=== PATIENT | female | born 1950 | race Caucasian/White ===

== ENCOUNTER → 2018-01-27 | Outpatient (CLI) | payer MEDICARE ==
[~2018-01-27] MED LIST: BUPIVACAINE MPF 0.25% 30 ML VIAL.; methylPREDNISolone ACETATE 40 MG/ML VIAL.
== END ==
LOC: PNCL 10:08
DX: G89.28 Other chronic postprocedural pain (principal); D36.17 Benign neoplasm of peripheral nerves and autonomic nervous system of trunk, unspecified; E11.9 Type 2 diabetes mellitus without complications; M19.90 Unspecified osteoarthritis, unspecified site; I48.91 Unspecified atrial fibrillation; K21.9 Gastro-esophageal reflux disease without esophagitis; I10 Essential (primary) hypertension; Z90.710 Acquired absence of both cervix and uterus; Z90.49 Acquired absence of other specified parts of digestive tract; Z88.1 Allergy status to other antibiotic agents; Z88.6 Allergy status to analgesic agent; Z82.49 Family history of ischemic heart disease and other diseases of the circulatory system; Z83.3 Family history of diabetes mellitus; Z85.9 Personal history of malignant neoplasm, unspecified; Z79.01 Long term (current) use of anticoagulants; Z88.8 Allergy status to other drugs, medicaments and biological substances; Z79.899 Other long term (current) drug therapy; Z80.9 Family history of malignant neoplasm, unspecified
CPT/HCPCS: 64450; J1030; J3490

== ENCOUNTER → 2018-02-11 | Outpatient (CLI) | payer MEDICARE ==
[~2018-02-11] MED LIST changes: -BUPIVACAINE MPF 0.25% 30 ML VIAL.; +BUPIVACAINE MPF 0.5% 30 ML VIAL.; -methylPREDNISolone ACETATE 40 MG/ML VIAL.
== END | disposition home or self-care (01) ==
LOC: PNCL 09:49
DX: G89.28 Other chronic postprocedural pain (principal); Z98.890 Other specified postprocedural states
CPT/HCPCS: 64450; J3490

== ENCOUNTER → 2018-10-27 | Day surgery (SDC) | payer MEDICARE ==
[~2018-10-27] MED LIST changes: +ALPR0.5T6 PO; +AMLO5TAB10 PO; +APIX5TAB PO; +ASCO10002 PO; -BUPIVACAINE MPF 0.5% 30 ML VIAL.; +ERGO500027 PO; +GLYB2.5T2 PO; +IV RINGERS,LACTATED 1000ML 1,000 ML IV SCH; +LIDOCAINE 1% PF 2 ML VIAL. ID PRN; +METF500T16 PO; +MULT1TAB52 PO; +OMEG-117 PO; +PANT20TA2 PO; +PROCHLORPERAZINE 10 MG/2 ML VIAL. IV PRN; +PROPOFOL 40 ML IV ONE; +SITA100T PO; +SOTA80TA48 PO; +fentaNYL PF VIAL 100 MCG/2 ML VIAL IV PRN
[2018-10-27 09:00] VITALS: BP 137/84
--- NOTE | 2018-10-27 10:31 | CONS ---
DATE OF CONSULTATION: 10/27/2018 REASON FOR CONSULTATION: Diarrhea and rectal bleeding. HISTORY OF PRESENT ILLNESS: A 67-year-old female whose past medical history is significant for diabetes, COPD, hypertension and hyperlipidemia, seen with chronic diarrhea that has been present for several months, she says up to 6 stools per day. It has been worse since her cholecystectomy. Weight has been increasing. Colonoscopy several years ago was unrevealing before the diarrhea started. No inflammatory bowel disease or celiac disease is noted with the family and no extraintestinal manifestations at this time. With continued issues, she requests additional evaluation. PAST MEDICAL HISTORY: Diabetes, COPD, diverticulitis, GERD and hypertension. ALLERGIES: ALLERGY TO CECLOR, LATEX AND MORPHINE. MEDICATIONS: Include alprazolam, amlodipine, Eliquis, ascorbic acid, vitamin D, metformin, multivitamins, [place]-3, pantoprazole, Januvia and sotalol. FAMILY AND SOCIAL HISTORY: She is a nonsmoker, nondrinker. PAST SURGICAL HISTORY: Back surgery, , cholecystectomy and hysterectomy. REVIEW OF SYSTEMS: Per records. PHYSICAL EXAMINATION: GENERAL: Reveals a well-nourished, well-developed female. VITAL SIGNS: Temperature is 98, pulse 81 and respirations 20. HEENT EXAMINATION: Normocephalic and atraumatic head. Pupils and extraocular muscles are not tested. Sclerae are anicteric. NECK: Supple. LUNGS: Clear. CARDIOVASCULAR EXAMINATION: Reveals S1 and S2, without S3, S4 or appreciable murmur. ABDOMEN: Examination reveals a soft abdomen. Normoactive bowel sounds. No appreciable hepatosplenomegaly. EXTREMITIES: Examination reveals no cyanosis, clubbing or edema. IMPRESSION AND PLAN: Diarrhea, status post cholecystectomy with metformin use, etiology is to be determined. Differential includes celiac, irritable bowel syndrome, inflammatory bowel disease, colon cancer or colon polyps, collagenous colitis and/or drug side effect, i.e., metformin. Therefore, I recommended upper endoscopy and colonoscopy with possible biopsies. Risks and benefits were discussed with the patient, including risk of hemorrhage or perforation. She is willing to proceed at this time. I would like to thank Denisse Paris for allowing us to consult and participate in the patient's care. URSULA SHARP MD DR: MARCELO/ling JOB#: [id number] / [id number]
--- NOTE | 2018-10-28 13:08 | PATHOLOGY ---
[facility] Accession Number: [id number] . 01 Material submitted: . PART A: DUODENAL BIOPSY PART B: RANDOM COLON BIOPSY . 01 Clinical history: . Pre-OP DX: Diarrhea, rectal bleed Post-OP DX: Rule out sprue, rule out microscopic colitis . 02 Diagnosis: A. Small bowel, duodenum, biopsy: - No pathologic diagnosis. - Normal villous architecture. . B. Colon, random biopsies: - Multiple fragments of colonic mucosa with no significant histopathologic diagnosis. (SKM:[facility] 10/28/2018) QTP/10/28/2018 . 02 Electronically signed: . Gabriel Yoder MD, Pathologist NPI- [id number] . 01 Gross description: . A. Received in formalin labeled "[place], Vivien, duodenal BX," are multiple segments of wallace soft tissue measuring 1.4 x 0.8 x 0.2 cm in aggregate dimensions. The specimen is filtered and entirely submitted in cassette A1. . B. Received in formalin labeled "[place], Vivien, random colon BX," are multiple segments of wallace soft tissue measuring 1.8 x 0.6 x 0.1 cm in aggregate dimensions. The specimen is filtered and entirely submitted in cassette B1. (TSD; 10/27/2018) TOB/TOB . 02 Pathologist provided ICD-10: R19.7, K62.5 . 02 CPT . 504599, 005308 Specimen Comment: A courtesy copy of this report has been sent to Specimen Comment: [phone], . Specimen Comment: Report sent to / DR MURILLO Specimen Comment: A duplicate report has been generated due to demographic updates. Performed at: 01 [facility] [address], [place] [id number] MD Mario Perez MD Phone: [phone] Performed at: 02 [facility] [address] [place] [id number] MD Rm Jimenes MD Phone: [phone]
== END | disposition home or self-care (01) ==
LOC: SURG 06:33
PROVIDERS: ATTEND Internal Medicine Gastroenterology
DX: K57.30 Diverticulosis of large intestine without perforation or abscess without bleeding (principal); K64.0 First degree hemorrhoids; K31.89 Other diseases of stomach and duodenum; K52.9 Noninfective gastroenteritis and colitis, unspecified; Z91.040 Latex allergy status; Z88.5 Allergy status to narcotic agent; Z91.048 Other nonmedicinal substance allergy status; I10 Essential (primary) hypertension; E11.9 Type 2 diabetes mellitus without complications; J44.9 Chronic obstructive pulmonary disease, unspecified; E78.5 Hyperlipidemia, unspecified; Z90.49 Acquired absence of other specified parts of digestive tract; K21.9 Gastro-esophageal reflux disease without esophagitis; Z79.899 Other long term (current) drug therapy; Z79.84 Long term (current) use of oral hypoglycemic drugs; Z90.710 Acquired absence of both cervix and uterus; Z98.890 Other specified postprocedural states
CPT/HCPCS: 43239; 45380; 82962; 88305; J2704

== ENCOUNTER → 2018-12-20 | Outpatient (CLI) | payer MEDICARE ==
[2018-10-27 09:00] VITALS: BP 137/84
[~2018-12-20] MED LIST changes: -IV RINGERS,LACTATED 1000ML 1,000 ML IV SCH; -LIDOCAINE 1% PF 2 ML VIAL. ID PRN; -PROCHLORPERAZINE 10 MG/2 ML VIAL. IV PRN; -PROPOFOL 40 ML IV ONE; -fentaNYL PF VIAL 100 MCG/2 ML VIAL IV PRN
--- NOTE | 2018-12-20 15:18 | KCIC ---
MRI left knee without contrast dated 12/20/2018. No comparison available. CLINICAL INDICATION: Pain after twisting injury. TECHNIQUE: Routine multiplanar multisequence MR imaging of left knee performed. No contrast administered. FINDINGS: Bone marrow signal is homogeneous. No marrow edema. Mild tricompartmental hypertrophic change. Mild thinning and surface irregularity of the articular cartilage throughout. Suspected full-thickness cartilage loss of the medial patellar facet and medial femoral trochlea. Small joint effusion. Trace amount of fluid at the semimembranosus-medial head gastrocnemius bursa. Small loose body at the posterior joint space measures about 3 mm in size. Anterior cruciate and posterior cruciate ligaments intact. Medial and lateral collateral complexes intact. Iliotibial band, popliteus tendon and pes anserine complex within normal limits. Quadriceps and patellar tendon are intact. No abnormality of the medial or lateral retinaculum. Both menisci are normal in morphology and signal. No articular surface tear or para meniscal cyst. There is mild generalized fatty atrophy of the distal thigh and calf musculature. IMPRESSION: 1. No evidence of internal derangement. 2. 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 There is full-thickness cartilage loss at the anterior compartment. 3. Small joint effusion with small loose body at the posterior joint space. 4. Mild generalized muscle atrophy. Electronically signed by: Gualberto Strange MD (12/20/2018 3:15 PM) [facility]
== END | disposition home or self-care (01) ==
LOC: KCIC MRI 14:12
PROVIDERS: ATTEND Family Medicine
DX: M17.12 Unilateral primary osteoarthritis, left knee (principal); M25.462 Effusion, left knee; M23.42 Loose body in knee, left knee; M62.562 Muscle wasting and atrophy, not elsewhere classified, left lower leg; M89.38 Hypertrophy of bone, other site
CPT/HCPCS: 73721

== ENCOUNTER 2019-07-24 02:05 | Inpatient (IN) | payer MEDICARE ==
[~2019-07-24] VITALS: Ht 165.1 cm; Wt 93.7 kg
[2019-07-24] MEDS ORDERED: ONDANSETRON PF 4 MG/2 ML VIAL. IV PRN (02:45)
[2019-07-24] MEDS ORDERED: ACETAMINOPHEN 325 MG TABLET. PO PRN (02:45)
[2019-07-24] MEDS: IV NORMAL SALINE 1000ML BAG 1,000 ML IV SCH ×3 (02:45→20:26)
[2019-07-24] MEDS ORDERED: HYDR-2145 PO (02:55)
[2019-07-24] MEDS ORDERED: EMPA10TA PO (02:55)
[2019-07-24] MEDS ORDERED: GLIP10TA13 PO (02:55)
[2019-07-24] MEDS ORDERED: CRESTOR40 MG PO (02:57)
[2019-07-24 03:00] VITALS: BP 133/67
[2019-07-24] MEDS ORDERED: SPIR25TA5 PO (03:00)
[2019-07-24] MEDS ORDERED: ACET500T33 PO (03:00)
[2019-07-24] MEDS ORDERED: ACETAMINOPHEN 500 MG TABLET PO PRN (03:00)
[2019-07-24] MEDS: fentaNYL PF VIAL 100 MCG/2 ML VIAL IVP PRN ×7 (03:21→20:28)
[2019-07-24] MEDS: PANTOPRAZOLE 40 MG TABLET.DR. PO SCH ×2 (05:42→12:25)
[2019-07-24 07:00] VITALS: BP 178/88
--- NOTE | 2019-07-24 08:57 | PDOC1 ---
History and Physical Date of Admission Date of Admission DATE: 07/24/19 TIME: 08:54 Identification/Chief Complaint Chief Complaint ." I was out checking out the [employer].. and I tripped over an extenison cord... I tried to catch myself.. and went down hard Source Source: Chart review, Patient History of Present Illness History of Present Illness Ms. Ordaz is a 68 year old female who presents with above hx and complaints of severe Lt elbow, arm and knee pain. Patient fell on concrete sidewalk after tripping over extension cord for the [employer]. Patient has obvious marked edema and dislocation of left elbow. Does have reduced sensation and pulses in left hand and wrist . Capillary refill Lt. hand 5-6 seconds. Is still able to both fingers. The capillary refill in left hand is markedly delayed as compared to right hand. Patient's knee is tender on palpation but is able to do straight leg lift. Distal neurovascular and leg intact. Does have bilateral ankle edema. Patient has a 12 x 12 cm abrasion to left knee. She denies other injury. Patient unsure of her last tetanus. Patient is on anticoagulants Eliquis. Patient does have an extensive medical history with chronic back pain, Hendrickson's palsy, chronic headaches, A. fib, hypercholesterol, diabetes,DVTs, pulmonary emboli (), sleep apnea, diverticulitis, morbid obesity, GERD reflux, anxiety, urinary tract infections, fibromyalgia and arthritis. She has had history of right shoulder fracture repair 2016. Also has had surgery for tubal ligation, , hysterectomy.. Pt. follows with Dr. Vallejo. Past Medical History Cardiovascular: HTN Pulmonary: No pertinent hx Past Surgical History Past Surgical History: Other Family History Family History: No Significant Social History Smoke: No ALCOHOL: none Drugs: None Current Medications Current Medications Current Medications Sodium Chloride 1,000 ml @ 100 mls/hr Q10H IV Last administered on 07/24/19at 02:45; Start 07/24/19 at 02:45 Ondansetron HCl (Zofran) 4 mg PRN Q4HRS PRN IV NAUSEA/VOMITING; Start 07/24/19 at 02:45 Acetaminophen (Tylenol) 650 mg PRN Q4HRS PRN PO TEMP OVER 100.4F OR MILD PAIN; Start 07/24/19 at 02:45 Fentanyl Citrate (Fentanyl 2ml Vial) 50 mcg PRN Q2HR PRN IVP PAIN Last admi nistered on 07/24/19at 05:56; Start 07/24/19 at 02:45 Fentanyl Citrate (Fentanyl 2ml Vial) 100 mcg PRN Q2HR PRN IVP SEVERE PAIN 7-10 Last administered on 07/24/19at 07:55; Start 07/24/19 at 02:45 Acetaminophen (Tylenol) 1,000 mg PRN Q6HRS PRN PO PAIN; Start 07/24/19 at 03:00 Alprazolam (Xanax) 0.5 mg PRN Q6HRS PRN PO ANXIETY / AGITATION; Start 07/24/19 at 03:00 Amlodipine Besylate (Norvasc) 5 mg DAILY PO ; Start 07/24/19 at 09:00 Ergocalciferol (Vitamin D2) 50,000 unit WEEKLY PO ; Start 07/24/19 at 09:00 Hydrochlorothiazide (Hydrodiuril) 25 mg DAILY PO ; Start 07/24/19 at 09:00 Sotalol HCl (Betapace) 80 mg BID PO ; Start 07/24/19 at 09:00 Spironolactone (Aldactone) 25 mg DAILY PO ; Start 07/24/19 at 09:00 Ascorbic Acid (Vitamin C) 1,000 mg DAILY PO ; Start 07/24/19 at 09:00 Non-Formulary Medication (Empagliflozin (Jardiance)) 10 mg DAILY PO ; Start 07/24/19 at 09:00; Status UNV Glipizide (Glucotrol) 10 mg DAILY PO ; Start 07/24/19 at 09:00 Multivitamins (Thera M Plus) 1 tab DAILY PO ; Start 07/24/19 at 09:00 Fish Oil (Fish Oil) 1,000 mg TID PO ; Start 07/24/19 at 09:00 Pantoprazole Sodium (Protonix) 40 mg DAILYAC PO ; Start 07/24/19 at 07:30 Atorvastatin Calcium (Lipitor) 80 mg HS PO ; Start 07/24/19 at 21:00 Active Scripts Active Reported Spironolactone 25 Mg Tablet 1 Tab PO DAILY Tylenol Extra Strength (Acetaminophen) 500 Mg Tablet 1,000 Mg PO PRN Q6HRS PRN Crestor (Rosuvastatin Calcium) 40 Mg Tablet 20 Mg PO DAILY Hydrochlorothiazide Tablet (Hydrochlorothiazide) 25 Mg Tablet 25 Mg PO DAILY Jardiance (Empagliflozin) 10 Mg Tablet 10 Mg PO DAILY Glipizide 10 Mg Tablet 10 Mg PO DAILY Fish Oil 1,200 mg Softgel ([place]-3/Dha/Epa/Fish Oil) 1 Each Capsule.dr 1 Each PO TID Multivitamins (Multivitamin) 1 Each Tablet 1 Tab PO DAILY Vitamin C (Ascorbic Acid) 1,000 Mg Tablet 1,000 Mg PO DAILY Alprazolam 0.5 Mg Tablet 0.5 Mg PO PRN Q6HRS PRN Vitamin D2 (Ergocalciferol (Vitamin D2)) 50,000 Unit Capsule 50,000 Unit PO WEEKLY Every Thursday AM Eliquis (Apixaban) 5 Mg Tablet 5 Mg PO BID Protonix (Pantoprazole Sodium) 20 Mg Tablet.dr 40 Mg PO DAILY Sotalol (Sotalol Hcl) 80 Mg Tablet 1 Tab PO BID Amlodipine Besylate 5 Mg Tablet 5 Mg PO DAILY Allergies Allergies: Coded Allergies: adhesive tape (Verified Allergy, Intermediate, 10/27/18) cefaclor (Verified Allergy, Intermediate, 10/27/18) latex (Verified Allergy, Intermediate, 10/27/18) morphine (Verified Allergy, Intermediate, 10/27/18) ROS General: No: Chills, Night Sweats, Fatigue, Malaise, Appetite, Other PSYCHOLOGICAL ROS: No: Anxiety, Behavioral Disorder, Concentration difficultie, Decreased libido, Depression, Disorientation, Hallucinations, Hostility, Irri tablity, Memory difficulties, Mood Swings, Obsessive thoughts, Physical abuse, Sexual abuse, Sleep disturbances, Suicidal ideation, Other Eyes: No Blurry vision, No Decreased vision, No Double vision, No Dry eyes, No Excessive tearing, No Eye Pain, No Itchy Eyes, No Loss of vision, No Photophobia, No Scotomata, No Uses contacts, No Uses glasses, No Other HEENT: No: Heacaches, Visual Changes, Hearing change, Nasal congestion, Nasal discharge, Oral lesions, Sinus pain, Sore Throat, Epistaxis, Sneezing, Snoring, Tinnitus, Vertigo, Vocal changes, Other Respiratory: No: Cough, Hemoptysis, Orthopnea, Pleuritic Pain, Shortness of breath, SOB with excertion, Sputum Changes, Stridor, Tachypnea, Wheezing, Other Cardiovascular: No Chest Pain, No Palpitations, No Orthopnea, No Paroxysmal Noc. Dyspnea, No Edema, No Lt Headedness, No Other Gastrointestinal: No Nausea, No Vomiting, No Abdominal Pain, No Diarrhea, No Constipation, No Melena, No Hematochezia, No Other Genitourinary: No Dysuria, No Frequency, No Incontinence, No Hematuria, No Retention, No Discharge, No Urgency, No Pain, No Flank Pain, No Other, No , No , No , No , No , No , No Musculoskeletal: No Gait Disturbance, No Joint Pain, No Joint Stiffness, No Joint Swelling, No Muscle Pain, No Muscular Weakness, No Pain In:, No Swelling In:, No Other Neurological: No Behavorial Changes, No Bowel/Bladder ControlChng, No Confusion, No Dizziness, No Gait Disturbance, No Headaches, No Impaired Coord/balance, No Memory Loss, No Numbness/Tingling, No Seizures, No Speech Problems, No Tremors, No Visual Changes, No Weakness, No Other Skin: Yes Dry Skin; No Eczema, No Hair Changes, No Lumps, No Mole Changes, No Mottling, No Nail Changes, No Pruritus, No Rash, No Skin Lesion Changes, No Other, No Acne Physical Exam General: Alert, Cooperative, severe distress HEENT: Atraumatic, PERRLA, Mucous membr. moist/pink Heart: no gallops, no murmurs Extremities: Normal pulses Neuro: Sensation intact Psych/Mental Status: Mood NL Vitals Vitals Vital Signs Date Time Temp Pulse Resp B/P (MAP) Pulse Ox O2 Delivery O2 Flow Rate FiO2 07/24/19 07:55 20 Room Air 07/24/19 07:00 98.0 76 178/88 (118) 95 98.0 07/24/19 06:44 2.0 Labs Labs Laboratory Tests Test 07/24/19 02:31 Glucose (Fingerstick) 182 mg/dL (70-99) Laboratory Tests Test 07/24/19 02:31 Glucose (Fingerstick) 182 mg/dL (70-99) VTE Prophylaxis Ordered VTE Prophylaxis Devices: Yes VTE Pharmacological Prophylaxi: No Assessment/Plan Assessment/Plan fall, arm pain, acute, left arm fracture, marked severe pain, fracture reduced in ER, she is still in 05/19 pain, Ortho consult, may need surg just due to level of pain diabetes, htn on sotalol, - needs to continue, hx cardiac , cont home meds, CV consult may be needed obese, BMI 34 OZ HEBERT MD Jul 24, 2019 08:57
[2019-07-24] MEDS: NON FORMULARY ITEM (Empagliflozin (Jardiance) 10 MG) PO SCH (09:00)
[2019-07-24] MEDS ORDERED: ERGOCALCIFEROL (VITAMIN D2) 50,000 UNIT CAPSULE. PO SCH (09:00)
[2019-07-24] MEDS: OMEGA-3 FATTY ACIDS/FISH OIL 1,000 MG CAPSULE. PO SCH ×3 (09:00→20:26)
[2019-07-24] MEDS: SPIRONOLACTONE 25 MG TABLET PO SCH (09:00)
[2019-07-24 09:06] LABS: BASO % 0 % (0-3); EOS % 0 % (0-3); HEMATOCRIT 38.5 % (36.0-47.0); HEMOGLOBIN 12.8 g/dL (12.0-15.5); LYMPH # 2.3 x10^3/uL (1.0-4.8); LYMPH % 21 % (24-48); MEAN CORPUSCULAR HEMOGLOBIN 29 pg (25-35); MEAN CORPUSCULAR HGB CONC 33 g/dL (31-37); MEAN CORPUSCULAR VOLUME 88 fL (79-100); MONO # 1.4 x10^3/uL (0.0-1.1); MONO % 13 % (0-9); NEUT # 7.2 x10^3/uL (1.8-7.7); NEUT % 66 % (31-73); PLATELET COUNT 206 x10^3/uL (140-400); RED BLOOD COUNT 4.37 x10^6/uL (3.50-5.40); RED CELL DISTRIBUTION WIDTH 15.4 % (11.5-14.5)
[2019-07-24] MEDS ORDERED: MORPHINE SULFATE 10 MG/ML VIAL. IV ONE (09:15)
[2019-07-24] MEDS ORDERED: KETOROLAC 30 MG/ML VIAL. IVP ONE (09:15)
[2019-07-24 09:23] LABS: PROTHROMBIN TIME PATIENT 13.7 SEC (11.7-14.0)
[2019-07-24 09:31] LABS: ALBUMIN 3.3 g/dL (3.4-5.0); ALBUMIN/GLOBULIN RATIO 0.9 (1.0-1.7); CALCIUM 8.7 mg/dL (8.5-10.1); CREATININE 0.7 mg/dL (0.6-1.0); GFR 83.7; POTASSIUM 3.6 mmol/L (3.5-5.1); TOTAL BILIRUBIN 0.6 mg/dL (0.2-1.0); TOTAL PROTEIN 6.8 g/dL (6.4-8.2)
[2019-07-24] MEDS ORDERED: SALIVA STIMULANT AGENT 44ML SPRAY BOTTLE. PO PRN (10:45)
[2019-07-24 11:00] VITALS: BP 155/70
[2019-07-24] MEDS: SOTALOL 80 MG TABLET. PO SCH ×2 (12:24→20:33)
[2019-07-24] MEDS: glipiZIDE 5 MG TABLET PO SCH (12:25)
[2019-07-24] MEDS: hydroCHLOROthiazide 25 MG TABLET PO SCH (12:25)
[2019-07-24] MEDS: MULTIVITAMIN with MINERAL TABLET. PO SCH (12:25)
[2019-07-24] MEDS: ASCORBIC ACID 500 MG TABLET PO SCH (12:26)
[2019-07-24] MEDS: amLODIPine BESYLATE 5 MG TABLET PO SCH (12:27)
[2019-07-24] MEDS: ALPRAZolam 0.5 MG TABLET PO PRN (12:27)
--- NOTE | 2019-07-24 13:17 | PDOC2 ---
CONSULT Date of Consult Date of Consult DATE: 07/24/19 TIME: 13:02 Reason for Consult Reason for Consult: Left elbow fracture dislocation Identification/Chief Complaint Chief Complaint Left elbow pain Source Source: Chart review, Patient History of Present Illness Reason for Visit: This 68-year-old right-handed retired woman fell on the sidewalk yesterday after tripping on an extension cord for [place] lights. She says she landed directly on the elbow, although I would guess she had a FOOSH injury based on the x-rays. In any case she had a fracture dislocation of the elbow, reduced in the emergency room last night and put in a splint. She is on Eliquis for atrial fibrillation and took her dose yesterday. She also had a severe abrasion to the left knee but does not suspect any fracture. She normally lives at home with her . She feels a bit banged up and has left elbow pain and some knee pain but denies other injuries. Past Medical History Past Medical History Patient does have an extensive medical history with chronic back pain, Hendrickson's palsy, chronic headaches, A. fib, hypercholesterol, diabetes,DVTs, pulmonary emboli (), sleep apnea, diverticulitis, morbid obesity, GERD reflux, anxiety, urinary tract infections, fibromyalgia and arthritis. She has had history of right shoulder fracture repair 2016. Also has had surgery for tubal ligation, , hysterectomy.. Pt. follows with Dr. Costa. Cardiovascular: AFIB, HTN Pulmonary: No pertinent hx Endocrine: Diabetes Past Surgical History Past Surgical History: Cholecystectomy, Hysterectomy, Other (right shoulder fracture surgery by Dr. Jones) Family History Family History: Cancer, Diabetes, Heart Disease Social History No ALCOHOL: none Drugs: None Lives: with Family Current Medications Current Medications Current Medications Sodium Chloride 1,000 ml @ 100 mls/hr Q10H IV Last administered on 07/24/19at 12:56; Start 07/24/19 at 02:45 Ondansetron HCl (Zofran) 4 mg PRN Q4HRS PRN IV NAUSEA/VOMITING; Start 07/24/19 at 02:45 Acetaminophen (Tylenol) 650 mg PRN Q4HRS PRN PO TEMP OVER 100.4F OR MILD PAIN; Start 07/24/19 at 02:45 Fentanyl Citrate (Fentanyl 2ml Vial) 50 mcg PRN Q2HR PRN IVP PAIN Last administered on 07/24/19 05:56; Start 07/24/19 at 02:45 Fentanyl Citrate (Fentanyl 2ml Vial) 100 mcg PRN Q2HR PRN IVP SEVERE PAIN 7-10 Last administered on 07/24/19 12:23; Start 07/24/19 at 02:45 Acetaminophen (Tylenol) 1,000 mg PRN Q6HRS PRN PO PAIN; Start 07/24/19 at 03:00 Alprazolam (Xanax) 0.5 mg PRN Q6HRS PRN PO ANXIETY / AGITATION Last administered on 07/24/19 12:27; Start 07/24/19 at 03:00 Amlodipine Besylate (Norvasc) 5 mg DAILY PO Last administered on 07/24/19 12:27; Start 07/24/19 at 09:00 Ergocalciferol (Vitamin D2) 50,000 unit WEEKLY PO Last administered on 07/24/19 12:25; Start 07/24/19 at 09:00 Hydrochlorothiazide (Hydrodiuril) 25 mg DAILY PO Last administered on 07/24/19 12:25; Start 07/24/19 at 09:00 Sotalol HCl (Betapace) 80 mg BID PO Last administered on 07/24/19 12:24; Start 07/24/19 at 09:00 Spironolactone (Aldactone) 25 mg DAILY PO ; Start 07/24/19 at 09:00 Ascorbic Acid (Vitamin C) 1,000 mg DAILY PO Last administered on 07/24/19 12:26; Start 07/24/19 at 09:00 Non-Formulary Medication (Empagliflozin (Jardiance)) 10 mg DAILY PO ; Start 07/24/19 at 09:00; Status UNV Glipizide (Glucotrol) 10 mg DAILY PO Last administered on 07/24/19 12:25; Start 07/24/19 at 09:00 Multivitamins (Thera M Plus) 1 tab DAILY PO Last administered on 07/24/19 12:25; Start 07/24/19 at 09:00 Fish Oil (Fish Oil) 1,000 mg TID PO ; Start 07/24/19 at 09:00 Pantoprazole Sodium (Protonix) 40 mg DAILYAC PO Last administered on 07/24/19at 12:25; Start 07/24/19 at 07:30 Atorvastatin Calcium (Lipitor) 80 mg HS PO ; Start 07/24/19 at 21:00 Ketorolac Tromethamine (Toradol 30mg Vial) 30 mg 1X ONCE IVP Last administered on 07/24/19at 09:43; Start 07/24/19 at 09:15; Stop 07/24/19 at 09:16; Status DC Morphine Sulfate (Morphine Sulfate) 5 mg 1X ONCE IV ; Start 07/24/19 at 09:15; Stop 07/24/19 at 09:16; Status UNV Saliva Substitute (Biotene Moisturizing Mouth) 2 spray PRN Q15MIN PRN PO DRY MOUTH; Start 07/24/19 at 10:45 Active Scripts Active Reported Spironolactone 25 Mg Tablet 1 Tab PO DAILY Tylenol Extra Strength (Acetaminophen) 500 Mg Tablet 1,000 Mg PO PRN Q6HRS PRN Crestor (Rosuvastatin Calcium) 40 Mg Tablet 20 Mg PO DAILY Hydrochlorothiazide Tablet (Hydrochlorothiazide) 25 Mg Tablet 25 Mg PO DAILY Jardiance (Empagliflozin) 10 Mg Tablet 10 Mg PO DAILY Glipizide 10 Mg Tablet 10 Mg PO DAILY Fish Oil 1,200 mg Softgel ([place]-3/Dha/Epa/Fish Oil) 1 Each Capsule.dr 1 Each PO TID Multivitamins (Multivitamin) 1 Each Tablet 1 Tab PO DAILY Vitamin C (Ascorbic Acid) 1,000 Mg Tablet 1,000 Mg PO DAILY Alprazolam 0.5 Mg Tablet 0.5 Mg PO PRN Q6HRS PRN Vitamin D2 (Ergocalciferol (Vitamin D2)) 50,000 Unit Capsule 50,000 Unit PO WEEKLY Every Thursday AM Eliquis (Apixaban) 5 Mg Tablet 5 Mg PO BID Protonix (Pantoprazole Sodium) 20 Mg Tablet. 40 Mg PO DAILY Sotalol (Sotalol Hcl) 80 Mg Tablet 1 Tab PO BID Amlodipine Besylate 5 Mg Tablet 5 Mg PO DAILY Allergies Allergies: Coded Allergies: adhesive tape (Verified Allergy, Intermediate, 10/27/18) cefaclor (Verified Allergy, Intermediate, 10/27/18) latex (Verified Allergy, Intermediate, 10/27/18) morphine (Verified Allergy, Intermediate, 10/27/18) ROS Review of System She reports urinary incontinence. She is had some episodes of bright red blood per rectum, and Dr. Costa her PCP is aware of those, but no definite diagnosis. PSYCHOLOGICAL ROS: No: Hallucinations HEENT: No: Epistaxis Hematological and Lymphatic: YES: Bleeding Problems (I take Eliquis and I'm a "bleeder") Respiratory: No: Cough, Hemoptysis, Shortness of breath, SOB with excertion, Sputum Changes Cardiovascular: No Chest Pain, No Palpitations, No Paroxysmal Noc. Dyspnea Gastrointestinal: No Nausea, No Vomiting, No Diarrhea, No Constipation Genitourinary: YES Incontinence Musculoskeletal: Yes Joint Pain Neurological: Yes Bowel/Bladder ControlChng Physical Exam General: Alert, Cooperative, mild distress HEENT: Atraumatic Lungs: Normal air movement Heart: Regular rate Abdomen: Soft Extremities: Other (the left elbow is in a splint and appears normally aligned. The fingers are exposed and she is able to demonstrate slight motor function of the radial ulnar and median nerves. Light touch sensation is intact. Capillary refill is normal. The left knee has an abrasion with a dressing but no deformity crepitus or bony tenderness. The right upper extremity is doing well, and she has good range of motion despite proximal humeral fracture plate fixation. The right lower extremity has normal alignment and no tenderness crepitus deformity or weakness.) Skin: Other (abrasion left knee) Neuro: Normal speech, Normal tone, Sensation intact Vitals VITALS Vital Signs Date Time Temp Pulse Resp B/P (MAP) Pulse Ox O2 Delivery O2 Flow Rate FiO2 07/24/19 12:53 20 95 Nasal Cannula 2.0 07/24/19 12:27 76 178/88 07/24/19 11:00 98.2 98.2 Labs Labs Laboratory Tests Test 07/24/19 02:31 07/24/19 08:40 07/24/19 10:57 Glucose (Fingerstick) 182 mg/dL (70-99) 154 mg/dL (70-99) White Blood Count 11.0 x10^3/uL (4.0-11.0) Red Blood Count 4.37 x10^6/uL (3.50-5.40) Hemoglobin 12.8 g/dL (12.0-15.5) Hematocrit 38.5 % (36.0-47.0) Mean Corpuscular Volume 88 fL (79-100) Mean Corpuscular Hemoglobin 29 pg (25-35) Mean Corpuscular Hemoglobin Concent 33 g/dL (31-37) Red Cell Distribution Width 15.4 % (11.5-14.5) Platelet Count 206 x10^3/uL (140-400) Neutrophils (%) (Auto) 66 % (31-73) Lymphocytes (%) (Auto) 21 % (24-48) Monocytes (%) (Auto) 13 % (0-9) Eosinophils (%) (Auto) 0 % (0-3) Basophils (%) (Auto) 0 % (0-3) Neutrophils # (Auto) 7.2 x10^3/uL (1.8-7.7) Lymphocytes # (Auto) 2.3 x10^3/uL (1.0-4.8) Monocytes # (Auto) 1.4 x10^3/uL (0.0-1.1) Eosinophils # (Auto) 0.0 x10^3/uL (0.0-0.7) Basophils # (Auto) 0.0 x10^3/uL (0.0-0.2) Prothrombin Time 13.7 SEC (11.7-14.0) Prothromb Time International Ratio 1.1 (0.8-1.1) Sodium Level 139 mmol/L (136-145) Potassium Level 3.6 mmol/L (3.5-5.1) Chloride Level 102 mmol/L (98-107) Carbon Dioxide Level 24 mmol/L (21-32) Anion Gap 13 (6-14) Blood Urea Nitrogen 22 mg/dL (7-20) Creatinine 0.7 mg/dL (0.6-1.0) Estimated GFR (Cockcroft-Gault) 83.7 BUN/Creatinine Ratio 31 (6-20) Glucose Level 171 mg/dL (70-99) Calcium Level 8.7 mg/dL (8.5-10.1) Total Bilirubin 0.6 mg/dL (0.2-1.0) Aspartate Amino Transf (AST/SGOT) 33 U/L (15-37) Alanine Aminotransferase (ALT/SGPT) 41 U/L (14-59) Alkaline Phosphatase 75 U/L (46-116) Total Protein 6.8 g/dL (6.4-8.2) Albumin 3.3 g/dL (3.4-5.0) Albumin/Globulin Ratio 0.9 (1.0-1.7) Laboratory Tests Test 07/24/19 02:31 07/24/19 08:40 07/24/19 10:57 Glucose (Fingerstick) 182 mg/dL (70-99) 154 mg/dL (70-99) White Blood Count 11.0 x10^3/uL (4.0-11.0) Red Blood Count 4.37 x10^6/uL (3.50-5.40) Hemoglobin 12.8 g/dL (12.0-15.5) Hematocrit 38.5 % (36.0-47.0) Mean Corpuscular Volume 88 fL (79-100) Mean Corpuscular Hemoglobin 29 pg (25-35) Mean Corpuscular Hemoglobin Concent 33 g/dL (31-37) Red Cell Distribution Width 15.4 % (11.5-14.5) Platelet Count 206 x10^3/uL (140-400) Neutrophils (%) (Auto) 66 % (31-73) Lymphocytes (%) (Auto) 21 % (24-48) Monocytes (%) (Auto) 13 % (0-9) Eosinophils (%) (Auto) 0 % (0-3) Basophils (%) (Auto) 0 % (0-3) Neutrophils # (Auto) 7.2 x10^3/uL (1.8-7.7) Lymphocytes # (Auto) 2.3 x10^3/uL (1.0-4.8) Monocytes # (Auto) 1.4 x10^3/uL (0.0-1.1) Eosinophils # (Auto) 0.0 x10^3/uL (0.0-0.7) Basophils # (Auto) 0.0 x10^3/uL (0.0-0.2) Prothrombin Time 13.7 SEC (11.7-14.0) Prothromb Time International Ratio 1.1 (0.8-1.1) Sodium Level 139 mmol/L (136-145) Potassium Level 3.6 mmol/L (3.5-5.1) Chloride Level 102 mmol/L (98-107) Carbon Dioxide Level 24 mmol/L (21-32) Anion Gap 13 (6-14) Blood Urea Nitrogen 22 mg/dL (7-20) Creatinine 0.7 mg/dL (0.6-1.0) Estimated GFR (Cockcroft-Gault) 83.7 BUN/Creatinine Ratio 31 (6-20) Glucose Level 171 mg/dL (70-99) Calcium Level 8.7 mg/dL (8.5-10.1) Total Bilirubin 0.6 mg/dL (0.2-1.0) Aspartate Amino Transf (AST/SGOT) 33 U/L (15-37) Alanine Aminotransferase (ALT/SGPT) 41 U/L (14-59) Alkaline Phosphatase 75 U/L (46-116) Total Protein 6.8 g/dL (6.4-8.2) Albumin 3.3 g/dL (3.4-5.0) Albumin/Globulin Ratio 0.9 (1.0-1.7) Images Images Reports reviewed, images independently reviewed. Comminuted radial head fracture, and posterior dislocation of the elbow. Postreduction single view seems to show adequate reduction. It's difficult to tell on the x-rays, but I believe there may be a coronoid fracture as well. CT scan will be useful to determine if there is a "terrible triad" injury (radial head fracture, coronoid fracture, and elbow dislocation) and to confirm [place] [address] IMAGING REPORT Signed PATIENT: JACKELYN ALEXIS ACCOUNT: [id number] MRN#: [id number] : 1950 LOCATION: ER AGE: 68 SEX: F EXAM STATUS: REG ER ORD. PHYSICIAN: YG COELLO MD REASON: 1 VIEW POST REDUCTION PROCEDURE: ELBOW LEFT 2V ELBOW LEFT 2V DATE: 07/23/2019 11:47 PM INDICATION: Elbow fracture COMPARISON: 07/23/2019. FINDINGS/ IMPRESSION: Interval reduction of the previously described elbow left fracture/dislocation, with improved alignment. Electronically signed by: Theodore Cardona MD (07/24/2019 12:32 AM) [facility] DICTATED AND SIGNED BY: THEODORE CARDONA MD DATE: 07/24/1931 CC: CANDACE COSTA MD; YG COELLO MD [address] [address] IMAGING REPORT Signed PATIENT: JACKELYN ALEXIS ACCOUNT: [id number] : 1950 LOCATION: ER AGE: 68 SEX: F EXAM STATUS: REG ER ORD. PHYSICIAN: YG COELLO MD REASON: fall PROCEDURE: HUMERUS LEFT Examination: HUMERUS LEFT, FOREARM LEFT, ELBOW LEFT 3V History: Fall, left elbow pain, bruising and swelling. Comparison/Correlation: None Findings: 2 view left humerus x-ray exam was performed. Two-view left forearm x-ray examination was performed. 3 view left elbow x-ray was performed. Evaluation is limited due to patient positioning as a result of her condition. Anterior dislocation of the distal humerus in relation to the olecranon fossa is evident. Comminuted displaced fracture friends about the elbow joint noted. These include fracture fragments anterior to the distal humeral condyles. The mid to distal left forearm is unremarkable. The proximal humerus is unremarkable. Impression: Anterior dislocation of the distal humerus in relation to the olecranon fossa with comminuted, displaced fracture fragments. Electronically signed by: Harsha Bran MD (07/23/2019 11:28 PM) [facility] DICTATED AND SIGNED BY: HARSHA BRAN MD DATE: 07/23/192327 CC: CANDACE COSTA MD; YG COELLO MD [address] [address] IMAGING REPORT Signed PATIENT: JACKELYN ALEXIS ACCOUNT: [id number] : 1950 LOCATION: ER AGE: 68 SEX: F EXAM STATUS: REG ER ORD. PHYSICIAN: YG COELLO MD REASON: fall PROCEDURE: KNEE LEFT 4V Left knee 4 views. HISTORY: Fall 4 views were taken of the left knee. There is no fracture or joint effusion or acute osseous abnormality. IMPRESSION: 1. No acute fracture noted in the left knee. Electronically signed by: Clarence Ludwig MD (07/23/2019 10:24 PM) [facility] Assessment/Plan Assessment/Plan Radial head fracture dislocation. Possible terrible triad injury. She is on Eliquis and took her dose yesterday. I recommended that she eat today and that we obtain a CT scan for surgical planning. Holding her Eliquis for 48 hours would be recommended preoperatively. I suspect she will need a radial head replacement but the CT scan will help to determine the treatment. I'm going to be leaving town and I'm going to transfer her care to Dr. Simms. I explained all of that to her and she agrees. I will order Percocet for pain. She has quite a bit of elbow pain but no evidence of compartment syndrome. I suspect she has a large hemarthrosis due to Eliquis. AMIE KULKARNI MD Jul 24, 2019 13:17
[2019-07-24] MEDS: oxyCODONE/APAP 7.5/325 1 TAB TABLET PO PRN ×2 (14:35→20:28)
[2019-07-24 15:00] VITALS: BP 138/65
--- NOTE | 2019-07-24 15:09 | EKG ---
[facility] [address] [place] [address] Test Date: 2019-07-24 Test Time: 14:59:08 Pat Name: JACKELYN ALEXIS Department: Room: [facility] Gender: F General Intern: DEVONTE : 1950 Requested By: OZ HEBERT Order Number: [id number] Reading MD: Measurements Intervals [place] Rate: 64 P: 52 SD: 210 QRS: 11 QRSD: 80 T: 44 QT: 418 QTc: 435 Interpretive Statements SINUS RHYTHM NO SPECIFIC ECG ABNORMALITIES RI6.01 No previous ECG available for comparison
[2019-07-24 19:00] VITALS: BP 108/60
--- NOTE | 2019-07-24 19:18 | RAD ---
CT left elbow dated 07/24/2019. Limited plain films dated same day. Clinical data indication: Pain after injury. Evaluate fracture. TECHNIQUE: Contiguous axial imaging the left elbow performed with thin cut coronal and sagittal reconstruction. One or more of the following individualized dose reduction techniques were utilized for this examination: 1. Automated exposure control 2. Adjustment of the mA and/or kV according to patient size 3. Use of iterative reconstruction technique. FINDINGS: Study is limited due to nonstandard positioning. There is a comminuted intra-articular fracture of the radial head with mild displacement of fracture fragments. There is involvement of the radial neck. There is a fluid distracted fracture off the coronoid process of the ulna. The distal humerus is intact. There is a small fracture fragment along the lateral margin of the capitellum. There is also a small bone fragment medial to the ulna and medial epicondyle. Suspected moderate size joint effusion. Visualized soft tissue structures are unremarkable. No additional fractures are seen. IMPRESSION: 1. Comminuted intra-articular fracture of the radial head/neck with displaced fracture fragments. 2. Distracted fracture at the coronoid process of the ulna. 3. Small bone fragments or loose bodies medially and laterally. Avulsion injury of the medial or lateral epicondyle not excluded. 4. Joint effusion. Electronically signed by: Gualberto Strange MD (07/24/2019 7:15 PM) [facility]
[2019-07-24] MEDS: ATORVASTATIN CALCIUM 40 MG TABLET. PO SCH (20:27)
[2019-07-24 23:00] VITALS: BP 109/61
[2019-07-25 03:00] VITALS: BP 141/74
[2019-07-25] MEDS: fentaNYL PF VIAL 100 MCG/2 ML VIAL IVP PRN ×2 (03:45→09:08)
[2019-07-25 07:00] VITALS: BP 143/74
[2019-07-25] MEDS: INSULIN LISPRO 300 UNITS/3 ML VIAL. SQ SCH ×3 (08:10→16:57)
[2019-07-25] MEDS ORDERED: DEXTROSE 50% 25 GM / 50ML DISP.SYRIN. IV PRN (08:15)
[2019-07-25] MEDS ORDERED: IV DEXTROSE 5% 250 ML BAG. IV PRN (08:15)
[2019-07-25] MEDS: NON FORMULARY ITEM (Empagliflozin (Jardiance) 10 MG) PO SCH (08:37)
[2019-07-25] MEDS: ASCORBIC ACID 500 MG TABLET PO SCH (08:38)
[2019-07-25] MEDS: glipiZIDE 5 MG TABLET PO SCH ×2 (08:38→14:29)
[2019-07-25] MEDS: MULTIVITAMIN with MINERAL TABLET. PO SCH (08:38)
[2019-07-25] MEDS: OMEGA-3 FATTY ACIDS/FISH OIL 1,000 MG CAPSULE. PO SCH ×3 (08:38→21:00)
[2019-07-25] MEDS: SOTALOL 80 MG TABLET. PO SCH ×2 (08:59→21:08)
[2019-07-25] MEDS: SPIRONOLACTONE 25 MG TABLET PO SCH (08:59)
[2019-07-25] MEDS: hydroCHLOROthiazide 25 MG TABLET PO SCH (08:59)
[2019-07-25] MEDS: amLODIPine BESYLATE 5 MG TABLET PO SCH (08:59)
[2019-07-25] MEDS: IV NORMAL SALINE 1000ML BAG 1,000 ML IV SCH ×2 (09:00→21:08)
[2019-07-25 09:09] LABS: BASO % 0 % (0-3); EOS # 0.1 x10^3/uL (0.0-0.7); EOS % 1 % (0-3); HEMATOCRIT 35.6 % (36.0-47.0); HEMOGLOBIN 11.8 g/dL (12.0-15.5); LYMPH # 1.5 x10^3/uL (1.0-4.8); LYMPH % 17 % (24-48); MEAN CORPUSCULAR HEMOGLOBIN 30 pg (25-35); MEAN CORPUSCULAR HGB CONC 33 g/dL (31-37); MEAN CORPUSCULAR VOLUME 90 fL (79-100); MONO # 1.1 x10^3/uL (0.0-1.1); MONO % 12 % (0-9); NEUT # 6.4 x10^3/uL (1.8-7.7); NEUT % 71 % (31-73); PLATELET COUNT 181 x10^3/uL (140-400); RED BLOOD COUNT 3.97 x10^6/uL (3.50-5.40); RED CELL DISTRIBUTION WIDTH 15.3 % (11.5-14.5); WHITE BLOOD COUNT 9.1 x10^3/uL (4.0-11.0)
[2019-07-25 09:27] LABS: ALBUMIN 2.9 g/dL (3.4-5.0); ALBUMIN/GLOBULIN RATIO 0.8 (1.0-1.7); CALCIUM 8.1 mg/dL (8.5-10.1); CREATININE 0.7 mg/dL (0.6-1.0); GFR 83.7; POTASSIUM 3.8 mmol/L (3.5-5.1); TOTAL BILIRUBIN 0.5 mg/dL (0.2-1.0); TOTAL PROTEIN 6.5 g/dL (6.4-8.2)
--- NOTE | 2019-07-25 09:29 | PDOC ---
PROGRESS NOTES Chief Complaint Chief Complaint CLosed, LEFT elbow fx with hematoma and swelling, displaced fx, plus small fragments HX PE and a fib s.p electrical cardioversion on eliquis at home Obesity BMI 34 TRaumatic fall at home History of Present Illness History of Present Illness PAin left elbow ELquis had been on hold HAs been NPO ON eliquis even after NSR after electrical cardioversion bec of unprovoked PE PLAN: Wait for Dr Ko (DR Guzmán out of town) HOld elquis Check vit D Will likely need sx - I dw them the CT findings, broken fragments, displaced fx and swelling and hematoma around Vitals Vitals Vital Signs Date Time Temp Pulse Resp B/P (MAP) Pulse Ox O2 Delivery O2 Flow Rate FiO2 07/25/19 09:08 Room Air 07/25/19 08:59 79 143/74 07/25/19 07:00 97.6 18 93 97.6 07/24/19 20:10 2.0 Physical Exam General: Alert, Cooperative, mild distress Heart: Regular rate, Normal S1, Normal S2 Lungs: Clear Abdomen: Soft Extremities: No clubbing, No cyanosis, Other (the left elbow is in a splint and appears normally aligned. The fingers are exposed and she is able to demonstrate slight motor function of the radial ulnar and median nerves. Light touch sensation is intact. Capillary refill is normal. The left knee has an abrasion with a dressing but no deformity crepitus or bony tenderness. The right upper extremity is doing well, and she has good range of motion despite proximal humeral fracture plate fixation. The right lower extremity has normal alignment and no tenderness crepitus deformity or weakness.) Skin: Other (abrasion left knee) Labs LABS Laboratory Tests Test 07/24/19 10:57 07/24/19 17:08 07/24/19 21:00 07/25/19 07:57 Glucose (Fingerstick) 154 mg/dL (70-99) 146 mg/dL (70-99) 175 mg/dL (70-99) 166 mg/dL (70-99) Test 07/25/19 08:50 White Blood Count 9.1 x10^3/uL (4.0-11.0) Red Blood Count 3.97 x10^6/uL (3.50-5.40) Hemoglobin 11.8 g/dL (12.0-15.5) Hematocrit 35.6 % (36.0-47.0) Mean Corpuscular Volume 90 fL (79-100) Mean Corpuscular Hemoglobin 30 pg (25-35) Mean Corpuscular Hemoglobin Concent 33 g/dL (31-37) Red Cell Distribution Width 15.3 % (11.5-14.5) Platelet Count 181 x10^3/uL (140-400) Neutrophils (%) (Auto) 71 % (31-73) Lymphocytes (%) (Auto) 17 % (24-48) Monocytes (%) (Auto) 12 % (0-9) Eosinophils (%) (Auto) 1 % (0-3) Basophils (%) (Auto) 0 % (0-3) Neutrophils # (Auto) 6.4 x10^3/uL (1.8-7.7) Lymphocytes # (Auto) 1.5 x10^3/uL (1.0-4.8) Monocytes # (Auto) 1.1 x10^3/uL (0.0-1.1) Eosinophils # (Auto) 0.1 x10^3/uL (0.0-0.7) Basophils # (Auto) 0.0 x10^3/uL (0.0-0.2) Assessment and Plan Assessmemt and Plan pain left elbow, all else is neg Comment Review of Relevant I have reviewed the following items cesar (where applicable) has been applied. Labs Laboratory Tests Test 07/24/19 02:31 07/24/19 08:40 07/24/19 10:57 07/24/19 17:08 Glucose (Fingerstick) 182 mg/dL (70-99) 154 mg/dL (70-99) 146 mg/dL (70-99) White Blood Count 11.0 x10^3/uL (4.0-11.0) Red Blood Count 4.37 x10^6/uL (3.50-5.40) Hemoglobin 12.8 g/dL (12.0-15.5) Hematocrit 38.5 % (36.0-47.0) Mean Corpuscular Volume 88 fL (79-100) Mean Corpuscular Hemoglobin 29 pg (25-35) Mean Corpuscular Hemoglobin Concent 33 g/dL (31-37) Red Cell Distribution Width 15.4 % (11.5-14.5) Platelet Count 206 x10^3/uL (140-400) Neutrophils (%) (Auto) 66 % (31-73) Lymphocytes (%) (Auto) 21 % (24-48) Monocytes (%) (Auto) 13 % (0-9) Eosinophils (%) (Auto) 0 % (0-3) Basophils (%) (Auto) 0 % (0-3) Neutrophils # (Auto) 7.2 x10^3/uL (1.8-7.7) Lymphocytes # (Auto) 2.3 x10^3/uL (1.0-4.8) Monocytes # (Auto) 1.4 x10^3/uL (0.0-1.1) Eosinophils # (Auto) 0.0 x10^3/uL (0.0-0.7) Basophils # (Auto) 0.0 x10^3/uL (0.0-0.2) Prothrombin Time 13.7 SEC (11.7-14.0) Prothromb Time International Ratio 1.1 (0.8-1.1) Sodium Level 139 mmol/L (136-145) Potassium Level 3.6 mmol/L (3.5-5.1) Chloride Level 102 mmol/L (98-107) Carbon Dioxide Level 24 mmol/L (21-32) Anion Gap 13 (6-14) Blood Urea Nitrogen 22 mg/dL (7-20) Creatinine 0.7 mg/dL (0.6-1.0) Estimated GFR (Cockcroft-Gault) 83.7 BUN/Creatinine Ratio 31 (6-20) Glucose Level 171 mg/dL (70-99) Calcium Level 8.7 mg/dL (8.5-10.1) Total Bilirubin 0.6 mg/dL (0.2-1.0) Aspartate Amino Transf (AST/SGOT) 33 U/L (15-37) Alanine Aminotransferase (ALT/SGPT) 41 U/L (14-59) Alkaline Phosphatase 75 U/L (46-116) Total Protein 6.8 g/dL (6.4-8.2) Albumin 3.3 g/dL (3.4-5.0) Albumin/Globulin Ratio 0.9 (1.0-1.7) Test 07/24/19 21:00 07/25/19 07:57 07/25/19 08:50 Glucose (Fingerstick) 175 mg/dL (70-99) 166 mg/dL (70-99) White Blood Count 9.1 x10^3/uL (4.0-11.0) Red Blood Count 3.97 x10^6/uL (3.50-5.40) Hemoglobin 11.8 g/dL (12.0-15.5) Hematocrit 35.6 % (36.0-47.0) Mean Corpuscular Volume 90 fL (79-100) Mean Corpuscular Hemoglobin 30 pg (25-35) Mean Corpuscular Hemoglobin Concent 33 g/dL (31-37) Red Cell Distribution Width 15.3 % (11.5-14.5) Platelet Count 181 x10^3/uL (140-400) Neutrophils (%) (Auto) 71 % (31-73) Lymphocytes (%) (Auto) 17 % (24-48) Monocytes (%) (Auto) 12 % (0-9) Eosinophils (%) (Auto) 1 % (0-3) Basophils (%) (Auto) 0 % (0-3) Neutrophils # (Auto) 6.4 x10^3/uL (1.8-7.7) Lymphocytes # (Auto) 1.5 x10^3/uL (1.0-4.8) Monocytes # (Auto) 1.1 x10^3/uL (0.0-1.1) Eosinophils # (Auto) 0.1 x10^3/uL (0.0-0.7) Basophils # (Auto) 0.0 x10^3/uL (0.0-0.2) Laboratory Tests Test 07/24/19 10:57 07/24/19 17:08 07/24/19 21:00 07/25/19 07:57 Glucose (Fingerstick) 154 mg/dL (70-99) 146 mg/dL (70-99) 175 mg/dL (70-99) 166 mg/dL (70-99) Test 07/25/19 08:50 White Blood Count 9.1 x10^3/uL (4.0-11.0) Red Blood Count 3.97 x10^6/uL (3.50-5.40) Hemoglobin 11.8 g/dL (12.0-15.5) Hematocrit 35.6 % (36.0-47.0) Mean Corpuscular Volume 90 fL (79-100) Mean Corpuscular Hemoglobin 30 pg (25-35) Mean Corpuscular Hemoglobin Concent 33 g/dL (31-37) Red Cell Distribution Width 15.3 % (11.5-14.5) Platelet Count 181 x10^3/uL (140-400) Neutrophils (%) (Auto) 71 % (31-73) Lymphocytes (%) (Auto) 17 % (24-48) Monocytes (%) (Auto) 12 % (0-9) Eosinophils (%) (Auto) 1 % (0-3) Basophils (%) (Auto) 0 % (0-3) Neutrophils # (Auto) 6.4 x10^3/uL (1.8-7.7) Lymphocytes # (Auto) 1.5 x10^3/uL (1.0-4.8) Monocytes # (Auto) 1.1 x10^3/uL (0.0-1.1) Eosinophils # (Auto) 0.1 x10^3/uL (0.0-0.7) Basophils # (Auto) 0.0 x10^3/uL (0.0-0.2) Medications Current Medications Sodium Chloride 1,000 ml @ 100 mls/hr Q10H IV Last administered on 07/25/19at 09:00; Start 07/24/19 at 02:45 Ondansetron HCl (Zofran) 4 mg PRN Q4HRS PRN IV NAUSEA/VOMITING; Start 07/24/19 at 02:45 Acetaminophen (Tylenol) 650 mg PRN Q4HRS PRN PO TEMP OVER 100.4F OR MILD PAIN; Start 07/24/19 at 02:45; Stop 07/24/19 at 18:37; Status DC Fentanyl Citrate (Fentanyl 2ml Vial) 50 mcg PRN Q2HR PRN IVP MODERATE PAIN Last administered on 07/24/19at 05:56; Start 07/24/19 at 02:45 Fentanyl Citrate (Fentanyl 2ml Vial) 100 mcg PRN Q2HR PRN IVP SEVERE PAIN 7-10 Last administered on 07/25/19at 09:08; Start 07/24/19 at 02:45 Acetaminophen (Tylenol) 1,000 mg PRN Q6HRS PRN PO TEMP OVER 100.4F OR MILD PAIN; Start 07/24/19 at 03:00 Alprazolam (Xanax) 0.5 mg PRN Q6HRS PRN PO ANXIETY / AGITATION Last administered on 07/24/19at 12:27; Start 07/24/19 at 03:00 Amlodipine Besylate (Norvasc) 5 mg DAILY PO Last administered on 07/25/19at 08:59; Start 07/24/19 at 09:00 Ergocalciferol (Vitamin D2) 50,000 unit WEEKLY PO Last administered on 07/24/19 12:25; Start 07/24/19 at 09:00 Hydrochlorothiazide (Hydrodiuril) 25 mg DAILY PO Last administered on 07/25/19 08:59; Start 07/24/19 at 09:00 Sotalol HCl (Betapace) 80 mg BID PO Last administered on 07/25/19at 08:59; Start 07/24/19 at 09:00 Spironolactone (Aldactone) 25 mg DAILY PO Last administered on 07/25/19 08:59; Start 07/24/19 at 09:00 Ascorbic Acid (Vitamin C) 1,000 mg DAILY PO Last administered on 07/24/19at 12:26; Start 07/24/19 at 09:00 Non-Formulary Medication (Empagliflozin (Jardiance)) 10 mg DAILY PO ; Start 07/24/19 at 09:00; Stop 07/25/19 at 08:53; Status DC Glipizide (Glucotrol) 10 mg DAILY PO Last administered on 07/24/19at 12:25; Start 07/24/19 at 09:00 Multivitamins (Thera M Plus) 1 tab DAILY PO Last administered on 07/24/19at 12:25; Start 07/24/19 at 09:00 Fish Oil (Fish Oil) 1,000 mg TID PO ; Start 07/24/19 at 09:00 Pantoprazole Sodium (Protonix) 40 mg DAILYAC PO Last administered on 07/24/19 12:25; Start 07/24/19 at 07:30 Atorvastatin Calcium (Lipitor) 80 mg HS PO Last administered on 07/24/19at 20:27; Start 07/24/19 at 21:00 Ketorolac Tromethamine (Toradol 30mg Vial) 30 mg 1X ONCE IVP Last administered on 07/24/19at 09:43; Start 07/24/19 at 09:15; Stop 07/24/19 at 09:16; Status DC Morphine Sulfate (Morphine Sulfate) 5 mg 1X ONCE IV ; Start 07/24/19 at 09:15; Stop 07/24/19 at 09:16; Status UNV Saliva Substitute (Biotene Moisturizing Mouth) 2 spray PRN Q15MIN PRN PO DRY MOUTH; Start 07/24/19 at 10:45 Oxycodone/ Acetaminophen (Percocet 7.5/ 325) 1 tab PRN Q4HRS PRN PO MODERATE PAIN Last administered on 07/24/19at 20:28; Start 07/24/19 at 13:30 Oxycodone/ Acetaminophen (Percocet 7.5/ 325) 2 tab PRN Q4HRS PRN PO SEVERE PAIN Last administered on 07/24/19at 14:35; Start 07/24/19 at 13:45 Insulin Human Lispro (HumaLOG) 0-9 UNITS TIDWMEALS SQ ; Start 07/25/19 at 08:10 Dextrose (Dextrose 50%-Water Syringe) 12.5 gm PRN Q15MIN PRN IV SEE COMMENTS; Start 07/25/19 at 08:15 Dextrose (Iv Dextrose 5%) 250 ml PRN Q30MIN PRN IV SEE COMMENTS; Start 07/25/19 at 08:15 Active Scripts Active Reported Spironolactone 25 Mg Tablet 1 Tab PO DAILY Tylenol Extra Strength (Acetaminophen) 500 Mg Tablet 1,000 Mg PO PRN Q6HRS PRN Crestor (Rosuvastatin Calcium) 40 Mg Tablet 20 Mg PO DAILY Hydrochlorothiazide Tablet (Hydrochlorothiazide) 25 Mg Tablet 25 Mg PO DAILY Jardiance (Empagliflozin) 10 Mg Tablet 10 Mg PO DAILY Glipizide 10 Mg Tablet 10 Mg PO DAILY Fish Oil 1,200 mg Softgel (Nye-3/Dha/Epa/Fish Oil) 1 Each Capsule.dr 1 Each PO TID Multivitamins (Multivitamin) 1 Each Tablet 1 Tab PO DAILY Vitamin C (Ascorbic Acid) 1,000 Mg Tablet 1,000 Mg PO DAILY Alprazolam 0.5 Mg Tablet 0.5 Mg PO PRN Q6HRS PRN Vitamin D2 (Ergocalciferol (Vitamin D2)) 50,000 Unit Capsule 50,000 Unit PO WEEKLY Every Thursday AM Eliquis (Apixaban) 5 Mg Tablet 5 Mg PO BID Protonix (Pantoprazole Sodium) 20 Mg Tablet.dr 40 Mg PO DAILY Sotalol (Sotalol Hcl) 80 Mg Tablet 1 Tab PO BID Amlodipine Besylate 5 Mg Tablet 5 Mg PO DAILY Vitals/I & O Vital Sign - Last 24 Hours 07/24/19 07/24/19 07/24/19 07/24/19 09:43 10:13 11:00 12:23 Temp 98.2 98.2 Pulse 71 Resp 20 20 20 20 B/P (MAP) 155/70 (98) Pulse Ox 95 O2 Delivery Nasal Cannula Room Air Nasal Cannula O2 Flow Rate 2.0 2.0 07/24/19 07/24/19 07/24/19 07/24/19 12:24 12:27 12:53 14:34 Pulse 76 76 Resp 20 20 B/P (MAP) 178/88 178/88 Pulse Ox 95 O2 Delivery Nasal Cannula Nasal Cannula O2 Flow Rate 2.0 2.0 07/24/19 07/24/19 07/24/19 07/24/19 14:35 15:00 15:04 15:35 Temp 97.8 97.8 Pulse 63 Resp 20 14 22 22 B/P (MAP) 138/65 (89) Pulse Ox 96 O2 Delivery Nasal Cannula Room Air Nasal Cannula Nasal Cannula O2 Flow Rate 2.0 2.0 2.0 07/24/19 07/24/19 07/24/19 07/24/19 19:00 20:10 20:33 23:00 Temp 98.9 98.5 98.9 98.5 Pulse 74 74 75 Resp 20 20 B/P (MAP) 108/60 (76) 108/60 109/61 (77) Pulse Ox 90 90 O2 Delivery Room Air Nasal Cannula Room Air O2 Flow Rate 2.0 07/25/19 07/25/19 07/25/19 07/25/19 03:00 07:00 08:59 08:59 Temp 98.2 97.6 98.2 97.6 Pulse 72 79 79 79 Resp 20 18 B/P (MAP) 141/74 (96) 143/74 (97) 143/74 143/74 Pulse Ox 96 93 O2 Delivery Room Air Room Air 07/25/19 09:08 O2 Delivery Room Air MARKELL CANO MD Jul 25, 2019 09:29
--- NOTE | 2019-07-25 10:27 | NUR ---
pt refused to receive the flu vaccine states that she does not take them
[2019-07-25 11:00] VITALS: BP 158/95
[2019-07-25] MEDS: oxyCODONE/APAP 7.5/325 1 TAB TABLET PO PRN ×3 (14:25→22:43)
--- NOTE | 2019-07-25 14:44 | NUR ---
SW following for discharge planning. Discussed with RN, pt is from home with . Pt having surgery today. SW will continue to follow for any discharge planning needs.
[2019-07-25 15:00] VITALS: BP 133/85
--- NOTE | 2019-07-25 15:08 | PDOC ---
PROGRESS NOTES Subjective Subjective CT scan reviewed. I discussed the patient with Dr. Simms and he is not willing to proceed with surgery at this time. I will have the for patient follow-up with me in the office, since I'm leaving town and will be out through the . I can see her in the office on the and we will plan for surgery on the . Objective Vital Signs Vital Signs Date Time Temp Pulse Resp B/P (MAP) Pulse Ox O2 Delivery O2 Flow Rate FiO2 07/25/19 14:25 Room Air 07/25/19 11:00 98.1 66 18 158/95 (804) 95 98.1 07/24/19 20:10 2.0 Physical Exam [facility] [address] [place], [place] [id number] IMAGING REPORT Signed PATIENT: JACKELYN ALEXIS ACCOUNT: [id number] : 1950 LOCATION: [address] [place] [address] AGE: 68 SEX: F EXAM STATUS: ADM IN ORD. PHYSICIAN: AMIE KULKARNI MD REASON: evaluate elbow fX;limited study due to hard/soft cast;pt unable to extend PROCEDURE: CT UPPR EXTREMTY WO CONTRST LT CT left elbow dated 07/24/2019. Limited plain films dated same day. Clinical data indication: Pain after injury. Evaluate fracture. TECHNIQUE: Contiguous axial imaging the left elbow performed with thin cut coronal and sagittal reconstruction. One or more of the following individualized dose reduction techniques were utilized for this examination: 1. Automated exposure control 2. Adjustment of the mA and/or kV according to patient size 3. Use of iterative reconstruction technique. FINDINGS: Study is limited due to nonstandard positioning. There is a comminuted intra-articular fracture of the radial head with mild displacement of fracture fragments. There is involvement of the radial neck. There is a fluid distracted fracture off the coronoid process of the ulna. The distal humerus is intact. There is a small fracture fragment along the lateral margin of the capitellum. There is also a small bone fragment medial to the ulna and medial epicondyle. Suspected moderate size joint effusion. Visualized soft tissue structures are unremarkable. No additional fractures are seen. IMPRESSION: 1. Comminuted intra-articular fracture of the radial head/neck with displaced fracture fragments. 2. Distracted fracture at the coronoid process of the ulna. 3. Small bone fragments or loose bodies medially and laterally. Avulsion injury of the medial or lateral epicondyle not excluded. 4. Joint effusion. Electronically signed by: Migel Strange MD (07/24/2019 7:15 PM) [facility] DICTATED and SIGNED BY: MIGEL STRANGE MD DATE: 07/24/191914 Labs Laboratory Tests Test 07/24/19 02:31 07/24/19 08:40 07/24/19 10:57 07/24/19 17:08 Glucose (Fingerstick) 182 mg/dL (70-99) 154 mg/dL (70-99) 146 mg/dL (70-99) White Blood Count 11.0 x10^3/uL (4.0-11.0) Red Blood Count 4.37 x10^6/uL (3.50-5.40) Hemoglobin 12.8 g/dL (12.0-15.5) Hematocrit 38.5 % (36.0-47.0) Mean Corpuscular Volume 88 fL (79-100) Mean Corpuscular Hemoglobin 29 pg (25-35) Mean Corpuscular Hemoglobin Concent 33 g/dL (31-37) Red Cell Distribution Width 15.4 % (11.5-14.5) Platelet Count 206 x10^3/uL (140-400) Neutrophils (%) (Auto) 66 % (31-73) Lymphocytes (%) (Auto) 21 % (24-48) Monocytes (%) (Auto) 13 % (0-9) Eosinophils (%) (Auto) 0 % (0-3) Basophils (%) (Auto) 0 % (0-3) Neutrophils # (Auto) 7.2 x10^3/uL (1.8-7.7) Lymphocytes # (Auto) 2.3 x10^3/uL (1.0-4.8) Monocytes # (Auto) 1.4 x10^3/uL (0.0-1.1) Eosinophils # (Auto) 0.0 x10^3/uL (0.0-0.7) Basophils # (Auto) 0.0 x10^3/uL (0.0-0.2) Prothrombin Time 13.7 SEC (11.7-14.0) Prothromb Time International Ratio 1.1 (0.8-1.1) Sodium Level 139 mmol/L (136-145) Potassium Level 3.6 mmol/L (3.5-5.1) Chloride Level 102 mmol/L (98-107) Carbon Dioxide Level 24 mmol/L (21-32) Anion Gap 13 (6-14) Blood Urea Nitrogen 22 mg/dL (7-20) Creatinine 0.7 mg/dL (0.6-1.0) Estimated GFR (Cockcroft-Gault) 83.7 BUN/Creatinine Ratio 31 (6-20) Glucose Level 171 mg/dL (70-99) Calcium Level 8.7 mg/dL (8.5-10.1) Total Bilirubin 0.6 mg/dL (0.2-1.0) Aspartate Amino Transf (AST/SGOT) 33 U/L (15-37) Alanine Aminotransferase (ALT/SGPT) 41 U/L (14-59) Alkaline Phosphatase 75 U/L (46-116) Total Protein 6.8 g/dL (6.4-8.2) Albumin 3.3 g/dL (3.4-5.0) Albumin/Globulin Ratio 0.9 (1.0-1.7) Test 07/24/19 21:00 07/25/19 07:57 07/25/19 08:50 07/25/19 11:17 Glucose (Fingerstick) 175 mg/dL (70-99) 166 mg/dL (70-99) 129 mg/dL (70-99) White Blood Count 9.1 x10^3/uL (4.0-11.0) Red Blood Count 3.97 x10^6/uL (3.50-5.40) Hemoglobin 11.8 g/dL (12.0-15.5) Hematocrit 35.6 % (36.0-47.0) Mean Corpuscular Volume 90 fL (79-100) Mean Corpuscular Hemoglobin 30 pg (25-35) Mean Corpuscular Hemoglobin Concent 33 g/dL (31-37) Red Cell Distribution Width 15.3 % (11.5-14.5) Platelet Count 181 x10^3/uL (140-400) Neutrophils (%) (Auto) 71 % (31-73) Lymphocytes (%) (Auto) 17 % (24-48) Monocytes (%) (Auto) 12 % (0-9) Eosinophils (%) (Auto) 1 % (0-3) Basophils (%) (Auto) 0 % (0-3) Neutrophils # (Auto) 6.4 x10^3/uL (1.8-7.7) Lymphocytes # (Auto) 1.5 x10^3/uL (1.0-4.8) Monocytes # (Auto) 1.1 x10^3/uL (0.0-1.1) Eosinophils # (Auto) 0.1 x10^3/uL (0.0-0.7) Basophils # (Auto) 0.0 x10^3/uL (0.0-0.2) Sodium Level 139 mmol/L (136-145) Potassium Level 3.8 mmol/L (3.5-5.1) Chloride Level 104 mmol/L (98-107) Carbon Dioxide Level 26 mmol/L (21-32) Anion Gap 9 (6-14) Blood Urea Nitrogen 15 mg/dL (7-20) Creatinine 0.7 mg/dL (0.6-1.0) Estimated GFR (Cockcroft-Gault) 83.7 BUN/Creatinine Ratio 21 (6-20) Glucose Level 154 mg/dL (70-99) Calcium Level 8.1 mg/dL (8.5-10.1) Total Bilirubin 0.5 mg/dL (0.2-1.0) Aspartate Amino Transf (AST/SGOT) 24 U/L (15-37) Alanine Aminotransferase (ALT/SGPT) 37 U/L (14-59) Alkaline Phosphatase 70 U/L (46-116) Total Protein 6.5 g/dL (6.4-8.2) Albumin 2.9 g/dL (3.4-5.0) Albumin/Globulin Ratio 0.8 (1.0-1.7) 25-Hydroxy Vitamin D Total 55.1 ng/mL (30-100) Laboratory Tests Test 07/24/19 17:08 07/24/19 21:00 07/25/19 07:57 07/25/19 08:50 Glucose (Fingerstick) 146 mg/dL (70-99) 175 mg/dL (70-99) 166 mg/dL (70-99) White Blood Count 9.1 x10^3/uL (4.0-11.0) Red Blood Count 3.97 x10^6/uL (3.50-5.40) Hemoglobin 11.8 g/dL (12.0-15.5) Hematocrit 35.6 % (36.0-47.0) Mean Corpuscular Volume 90 fL (79-100) Mean Corpuscular Hemoglobin 30 pg (25-35) Mean Corpuscular Hemoglobin Concent 33 g/dL (31-37) Red Cell Distribution Width 15.3 % (11.5-14.5) Platelet Count 181 x10^3/uL (140-400) Neutrophils (%) (Auto) 71 % (31-73) Lymphocytes (%) (Auto) 17 % (24-48) Monocytes (%) (Auto) 12 % (0-9) Eosinophils (%) (Auto) 1 % (0-3) Basophils (%) (Auto) 0 % (0-3) Neutrophils # (Auto) 6.4 x10^3/uL (1.8-7.7) Lymphocytes # (Auto) 1.5 x10^3/uL (1.0-4.8) Monocytes # (Auto) 1.1 x10^3/uL (0.0-1.1) Eosinophils # (Auto) 0.1 x10^3/uL (0.0-0.7) Basophils # (Auto) 0.0 x10^3/uL (0.0-0.2) Sodium Level 139 mmol/L (136-145) Potassium Level 3.8 mmol/L (3.5-5.1) Chloride Level 104 mmol/L (98-107) Carbon Dioxide Level 26 mmol/L (21-32) Anion Gap 9 (6-14) Blood Urea Nitrogen 15 mg/dL (7-20) Creatinine 0.7 mg/dL (0.6-1.0) Estimated GFR (Cockcroft-Gault) 83.7 BUN/Creatinine Ratio 21 (6-20) Glucose Level 154 mg/dL (70-99) Calcium Level 8.1 mg/dL (8.5-10.1) Total Bilirubin 0.5 mg/dL (0.2-1.0) Aspartate Amino Transf (AST/SGOT) 24 U/L (15-37) Alanine Aminotransferase (ALT/SGPT) 37 U/L (14-59) Alkaline Phosphatase 70 U/L (46-116) Total Protein 6.5 g/dL (6.4-8.2) Albumin 2.9 g/dL (3.4-5.0) Albumin/Globulin Ratio 0.8 (1.0-1.7) 25-Hydroxy Vitamin D Total 55.1 ng/mL (30-100) Test 07/25/19 11:17 Glucose (Fingerstick) 129 mg/dL (70-99) Imaging [facility] [address] [place] [address] IMAGING REPORT Signed PATIENT: JACKELYN ALEXIS ACCOUNT: [id number] : 1950 LOCATION: [address] [place] [address] AGE: 68 SEX: F EXAM STATUS: ADM IN ORD. PHYSICIAN: AMIE KULKARNI MD REASON: evaluate elbow fX;limited study due to hard/soft cast;pt unable to extend PROCEDURE: CT UPPR EXTREMTY WO CONTRST LT CT left elbow dated 07/24/2019. Limited plain films dated same day. Clinical data indication: Pain after injury. Evaluate fracture. TECHNIQUE: Contiguous axial imaging the left elbow performed with thin cut coronal and sagittal reconstruction. One or more of the following individualized dose reduction techniques were utilized for this examination: 1. Automated exposure control 2. Adjustment of the mA and/or kV according to patient size 3. Use of iterative reconstruction technique. FINDINGS: Study is limited due to nonstandard positioning. There is a comminuted intra-articular fracture of the radial head with mild displacement of fracture fragments. There is involvement of the radial neck. There is a fluid distracted fracture off the coronoid process of the ulna. The distal humerus is intact. There is a small fracture fragment along the lateral margin of the capitellum. There is also a small bone fragment medial to the ulna and medial epicondyle. Suspected moderate size joint effusion. Visualized soft tissue structures are unremarkable. No additional fractures are seen. IMPRESSION: 1. Comminuted intra-articular fracture of the radial head/neck with displaced fracture fragments. 2. Distracted fracture at the coronoid process of the ulna. 3. Small bone fragments or loose bodies medially and laterally. Avulsion injury of the medial or lateral epicondyle not excluded. 4. Joint effusion. Electronically signed by: Migel Strange MD (07/24/2019 7:15 PM) [facility] DICTATED and SIGNED BY: MIGEL STRANGE MD DATE: 07/24/191914 Assessment Assessment terrible triad injury Plan Plan of Care CT scan reviewed. I discussed the patient with Dr. Simms and he is not willing to proceed with surgery at this time. I will have the for patient follow-up with me in the office, since I'm leaving town and will be out through the . I can see her in the office on the and we will plan for surgery on the . AMIE KULKARNI MD Jul 25, 2019 15:08
[2019-07-25] MEDS: CALCIUM CARBONATE 500 MG TAB.CHEW PO PRN ×2 (17:19→22:58)
[2019-07-25 19:00] VITALS: BP 164/88
[2019-07-25] MEDS: ATORVASTATIN CALCIUM 40 MG TABLET. PO SCH (21:00)
[2019-07-25] MEDS: ALPRAZolam 0.5 MG TABLET PO PRN (22:45)
[2019-07-25 23:00] VITALS: BP 110/60
[2019-07-26] MEDS: oxyCODONE/APAP 7.5/325 1 TAB TABLET PO PRN ×2 (02:25→08:27)
[2019-07-26 02:45] VITALS: BP 138/69
[2019-07-26] MEDS: IV NORMAL SALINE 1000ML BAG 1,000 ML IV SCH (04:45)
[2019-07-26 07:15] VITALS: BP 137/81
[2019-07-26] MEDS: INSULIN LISPRO 300 UNITS/3 ML VIAL. SQ SCH (08:00)
[2019-07-26] MEDS: glipiZIDE 5 MG TABLET PO SCH (08:24)
[2019-07-26] MEDS: hydroCHLOROthiazide 25 MG TABLET PO SCH (08:24)
[2019-07-26] MEDS: amLODIPine BESYLATE 5 MG TABLET PO SCH (08:25)
[2019-07-26] MEDS: PANTOPRAZOLE 40 MG TABLET.DR. PO SCH (08:25)
[2019-07-26] MEDS: OMEGA-3 FATTY ACIDS/FISH OIL 1,000 MG CAPSULE. PO SCH (08:25)
[2019-07-26] MEDS: MULTIVITAMIN with MINERAL TABLET. PO SCH (08:25)
[2019-07-26] MEDS: SOTALOL 80 MG TABLET. PO SCH (08:26)
[2019-07-26] MEDS: SPIRONOLACTONE 25 MG TABLET PO SCH (08:26)
[2019-07-26] MEDS: ASCORBIC ACID 500 MG TABLET PO SCH (08:27)
[2019-07-26] MEDS ORDERED: OXYC1TAB19 PO (08:53)
[2019-07-26] MEDS ORDERED: fentaNYL PF VIAL 100 MCG/2 ML VIAL IVP ONE (10:05)
--- NOTE | 2019-07-26 10:42 | PDOC3 ---
Discharge Summary Visit Information Date of Admission: Jul 24, 2019 Date of Discharge: Jul 26, 2019 Admitting Diagnosis Comment: CLosed, LEFT elbow fx with hematoma and swelling, displaced fx, plus small fragments HX PE and a fib s.p electrical cardioversion on eliquis at home Obesity BMI 34 TRaumatic fall at home Brief Hospital Course Allergies Allergies Coded Allergies Type Severity Reaction Last Updated Verified adhesive tape Allergy Intermediate 10/27/18 Yes cefaclor Allergy Intermediate 10/27/18 Yes latex Allergy Intermediate 10/27/18 Yes morphine Allergy Intermediate 10/27/18 Yes Vital Signs Vital Signs Date Time Temp Pulse Resp B/P (MAP) Pulse Ox O2 Delivery O2 Flow Rate FiO2 07/26/19 10:28 22 Room Air 07/26/19 08:26 75 137/81 07/26/19 07:15 97.3 92 97.3 07/26/19 03:25 2.5 Lab Results Laboratory Tests Test 07/24/19 10:57 07/24/19 17:08 07/24/19 21:00 07/25/19 07:57 Glucose (Fingerstick) 154 mg/dL (70-99) 146 mg/dL (70-99) 175 mg/dL (70-99) 166 mg/dL (70-99) Test 07/25/19 08:50 07/25/19 11:17 07/25/19 16:49 07/25/19 20:11 White Blood Count 9.1 x10^3/uL (4.0-11.0) Red Blood Count 3.97 x10^6/uL (3.50-5.40) Hemoglobin 11.8 g/dL (12.0-15.5) Hematocrit 35.6 % (36.0-47.0) Mean Corpuscular Volume 90 fL (79-100) Mean Corpuscular Hemoglobin 30 pg (25-35) Mean Corpuscular Hemoglobin Concent 33 g/dL (31-37) Red Cell Distribution Width 15.3 % (11.5-14.5) Platelet Count 181 x10^3/uL (140-400) Neutrophils (%) (Auto) 71 % (31-73) Lymphocytes (%) (Auto) 17 % (24-48) Monocytes (%) (Auto) 12 % (0-9) Eosinophils (%) (Auto) 1 % (0-3) Basophils (%) (Auto) 0 % (0-3) Neutrophils # (Auto) 6.4 x10^3/uL (1.8-7.7) Lymphocytes # (Auto) 1.5 x10^3/uL (1.0-4.8) Monocytes # (Auto) 1.1 x10^3/uL (0.0-1.1) Eosinophils # (Auto) 0.1 x10^3/uL (0.0-0.7) Basophils # (Auto) 0.0 x10^3/uL (0.0-0.2) Sodium Level 139 mmol/L (136-145) Potassium Level 3.8 mmol/L (3.5-5.1) Chloride Level 104 mmol/L (98-107) Carbon Dioxide Level 26 mmol/L (21-32) Anion Gap 9 (6-14) Blood Urea Nitrogen 15 mg/dL (7-20) Creatinine 0.7 mg/dL (0.6-1.0) Estimated GFR (Cockcroft-Gault) 83.7 BUN/Creatinine Ratio 21 (6-20) Glucose Level 154 mg/dL (70-99) Calcium Level 8.1 mg/dL (8.5-10.1) Total Bilirubin 0.5 mg/dL (0.2-1.0) Aspartate Amino Transf (AST/SGOT) 24 U/L (15-37) Alanine Aminotransferase (ALT/SGPT) 37 U/L (14-59) Alkaline Phosphatase 70 U/L (46-116) Total Protein 6.5 g/dL (6.4-8.2) Albumin 2.9 g/dL (3.4-5.0) Albumin/Globulin Ratio 0.8 (1.0-1.7) 25-Hydroxy Vitamin D Total 55.1 ng/mL (30-100) Glucose (Fingerstick) 129 mg/dL (70-99) 168 mg/dL (70-99) 170 mg/dL (70-99) Test 07/26/19 07:13 Glucose (Fingerstick) 156 mg/dL (70-99) Laboratory Tests Test 07/25/19 11:17 07/25/19 16:49 07/25/19 20:11 07/26/19 07:13 Glucose (Fingerstick) 129 mg/dL (70-99) 168 mg/dL (70-99) 170 mg/dL (70-99) 156 mg/dL (70-99) Brief Hospital Course Ms. Ordaz is a 68 old obese white female who fell at home and fractured her elbow, There was some discussion as to whether or not she needed sx. Ortho will be out of town so the consensus was sx aug 05, i advsied to hold home eliquis (hx afib s.p electrical cardioversion but also unprovoked PE) HOLD elquis 2 days before scheduled sx which is tentatively scheduled aug 05 NO PT needs, HOme with today. Discharge Information Condition at Discharge: Improved, Stable Follow Up: Weeks (aug [address] Silva, hold eliquis x 2 days before ched surgery) Disposition/Orders: D/C to Home Scheduled Amlodipine Besylate (Amlodipine Besylate) 5 Mg Tablet, 5 MG PO DAILY, (Reported) Entered as Reported by: SYMONE HERRERA on 01/27/18 105 Last Taken: Unknown Dose on 07/23/19 Last Action: Continued on 07/24/19303 by VERONICA BERRY Apixaban (Eliquis) 5 Mg Tablet, 5 MG PO BID, (Reported) Entered as Reported by: SYMONE HERRERA on 01/27/18 1057 Last Taken: Unknown Dose on 07/23/19 Last Action: Last Taken Edited on 07/24/19253 by VERONICA BERRY Ascorbic Acid (Vitamin C) 1,000 Mg Tablet, 1,000 MG PO DAILY, (Reported) Entered as Reported by: SYMONE HERRERA on 01/27/18 1059 Last Taken: Unknown Dose on 07/23/19 Last Action: Converted on 07/24/19303 by VERONICA BERRY Empagliflozin (Jardiance) 10 Mg Tablet, 10 MG PO DAILY for DM, (Reported) Entered as Reported by: VERONICA BERRY on 07/24/19254 Last Taken: Unknown Dose on 07/23/19 Last Action: Converted on 07/24/19303 by VERONICA BERRY Ergocalciferol (Vitamin D2) (Vitamin D2) 50,000 Unit Capsule, 50,000 UNIT PO WEEKLY for vit D, (Reported) Every Thursday AM Entered as Reported by: SYMONE HERRERA on 01/27/18 105 Last Taken: Unknown Dose on 07/23/19 Last Action: Continued on 07/24/19303 by VERONICA BERRY Glipizide (Glipizide) 10 Mg Tablet, 10 MG PO DAILY for DM, (Reported) Entered as Reported by: VERONICA BERRY on 07/24/19254 Last Taken: Unknown Dose on 07/23/19 Last Action: Converted on 07/24/19303 by VERONICA BERRY Hydrochlorothiazide (Hydrochlorothiazide Tablet ) 25 Mg Tablet, 25 MG PO DAILY for DIURETIC, Ref 0 (Reported) Entered as Reported by: VERONICA BERRY on 07/24/19254 Last Action: Continued on 07/24/19303 by VERONICA BERRY Multivitamin (Multivitamins) 1 Each Tablet, 1 TAB PO DAILY, #90 Ref 3 (Reported) Entered as Reported by: SYMONE HERRERA on 01/27/18 1059 Last Taken: Unknown Dose on 07/23/19 Last Action: Converted on 07/24/19303 by VERONICA BERRY Mcneil-3/Dha/Epa/Fish Oil (Fish Oil 1,200 mg Softgel) 1 Each Capsule.dr, 1 EACH PO TID, (Reported) Entered as Reported by: SYMONE HERRERA on 01/27/18 1100 Last Taken: Unknown Dose on 07/23/19 Last Action: Converted on 07/24/19303 by VERONICA BERRY Pantoprazole Sodium (Protonix) 20 Mg Tablet.dr, 40 MG PO DAILY, (Reported) Entered as Reported by: SYMONE HERRERA on 01/27/18 105 Last Taken: Unknown Dose on 07/23/19 Last Action: Converted on 07/24/19303 by VERONICA BERRY Rosuvastatin Calcium (Crestor) 40 Mg Tablet, 20 MG PO DAILY for FOR CHOLESTEROL, #30 Ref 0 (Reported) Entered as Reported by: VERONICA BERRY on 07/24/19256 Last Taken: Unknown Dose on 07/23/19 Last Action: Converted on 07/24/19303 by VERONICA BERRY Sotalol Hcl (Sotalol) 80 Mg Tablet, 1 TAB PO BID, #60 Ref 5 (Reported) Entered as Reported by: SYMONE HERRERA on 01/27/18 1056 Last Taken: Unknown Dose on 07/23/19 Last Action: Continued on 07/24/19303 by VERONICA BERRY Spironolactone (Spironolactone) 25 Mg Tablet, 1 TAB PO DAILY for HTN, #90 Ref 1 (Reported) Entered as Reported by: VERONICA BERRY on 07/24/19299 Last Taken: Unknown Dose on 07/23/19 Last Action: Continued on 07/24/19303 by VERONICA BERRY Scheduled PRN Acetaminophen (Tylenol Extra Strength) 500 Mg Tablet, 1,000 MG PO PRN Q6HRS PRN for PAIN, (Reported) Entered as Reported by: VERONICA BERRY on 07/24/19299 Last Action: Continued on 07/24/19303 by VERONICA BERRY Alprazolam (Alprazolam) 0.5 Mg Tablet, 0.5 MG PO PRN Q6HRS PRN for ANXIETY / AGITATION, Ref 0 (Reported) Entered as Reported by: SYMONE HERRERA on 01/27/181057 Last Taken: Unknown Dose on 07/23/19 Last Action: Continued on 07/24/19303 by VERONICA BERRY Oxycodone/Apap 7.5-325 (Percocet 7.5-325 Mg Tablet ) 1 Each Tablet, 2 TAB PO PRN Q4HRS PRN for SEVERE PAIN, #30 Prescribed by: MARKELL CANO on 07/26/19 0853 Discontinued Medications Metformin Hcl (Metformin Hcl) 500 Mg Tablet, 500 MG PO BIDWMEALS for ANTI-DIABET IC, Ref 0 (Reported) Entered as Reported by: Tanja Petersen on 10/26/18928 Last Taken: Unknown Dose on 07/23/19 Last Action: Discontinued on 07/24/19299 by VERONICA BERRY Sitagliptin Phosphate (Januvia) 100 Mg Tablet, 1 TAB PO DAILY, #30 Ref 5 (Reported) Entered as Reported by: SYMONE HERRERA on 01/27/18 105 Last Taken: Unknown Dose on 07/23/19 Last Action: Discontinued on 07/24/19299 by MARKELL URRUTIA MD Jul 26, 2019 10:42
[2019-07-26 11:04] VITALS: BP_SYST 124; BP_SYST 162; BP_DIAS 82; BP_DIAS 88
--- NOTE | 2019-07-26 14:40 | NUR ---
Discharge Note: JACKELYN ALEXIS [address] [place] [address] Discharge instructions and discharge home medications reviewed with Patient and a copy given. All questions have been answered and understanding verbalized. The following instructions and handouts were given: fracture, pain mgmt Discontinued lines and drains:peripheral line. Patient discharged to Home or Self Care with Spouse via Wheelchair
== END 2019-07-26 13:45 | disposition home or self-care (01) | DRG 563 ==
LOC: 4 NORTH 02:05
PROVIDERS: ADMIT Family Medicine; ATTEND Family Medicine
PROC: 2W3BX1Z Immobilization of Left Upper Arm using Splint (ICD-10-PCS; principal; 2019-07-24)
PROC: 0PSLXZZ Reposition Left Ulna, External Approach (ICD-10-PCS; 2019-07-24)
DX: S52.042A Displaced fracture of coronoid process of left ulna, initial encounter for closed fracture (principal); E11.9 Type 2 diabetes mellitus without complications; E78.00 Pure hypercholesterolemia, unspecified; I10 Essential (primary) hypertension; I48.91 Unspecified atrial fibrillation; M79.7 Fibromyalgia; S52.123A Displaced fracture of head of unspecified radius, initial encounter for closed fracture; Z79.01 Long term (current) use of anticoagulants; Z83.3 Family history of diabetes mellitus; Z86.711 Personal history of pulmonary embolism; Z90.710 Acquired absence of both cervix and uterus; E66.01 Morbid (severe) obesity due to excess calories; F41.9 Anxiety disorder, unspecified; G89.29 Other chronic pain; K21.9 Gastro-esophageal reflux disease without esophagitis; M19.90 Unspecified osteoarthritis, unspecified site; Z68.34 Body mass index [BMI] 34.0-34.9, adult; W18.39XA Other fall on same level, initial encounter; Y93.89 Activity, other specified; Y92.89 Other specified places as the place of occurrence of the external cause; Y99.8 Other external cause status
CPT/HCPCS: 36415; 73200; 80053; 82306; 82962; 85025; 85610; 93005; J1815; J1885; J2405; J3010; J7030; G0378

== ENCOUNTER → 2020-06-01 | Outpatient (CLI) | payer MEDICARE ==
[2019-07-26 11:04] VITALS: BP 162/88
[~2020-06-01] MED LIST changes: +ACET500T33 PO; +AMLO-186 PO; -AMLO5TAB10 PO; +ASCO100019 PO; -ASCO10002 PO; +CRESTOR40 MG PO; +EMPA10TA PO; +GLIP10TA13 PO; +HYDR-2145 PO; +MULT-445 PO; -MULT1TAB52 PO; +OXYC1TAB19 PO; +SPIR25TA5 PO
== END ==
LOC: LAB 13:00
PROVIDERS: ATTEND Orthopaedic Surgery
DX: Z01.812 Encounter for preprocedural laboratory examination (principal); U07.1 COVID-19
CPT/HCPCS: U0003